=== PATIENT | male | born 1950 | race Caucasian/White ===

== ENCOUNTER 2023-09-11 02:22 | Inpatient (IN) | payer OTHER ==
[2023-09-11] VITALS (12 sets, daily range): BP systolic 134–196; BP diastolic 81–108; PULSE 89–112; RESP 16–20; TEMP 98–98.6
[~2023-09-11] VITALS: Ht 160 cm; Wt 73.9 kg
[2023-09-11 03:30] LABS: BASOPHILS % 1.1 % (0.0-2.0); EOSINOPHILS % 3.7 % (0.0-5.0); HEMATOCRIT. 34.8 % (42.0-52.0); HEMOGLOBIN. 11.1 g/dL (14.0-18.0); MEAN CORPUSCULAR HEMOGLOBIN 30.6 pg (28.0-32.0); MEAN CORPUSCULAR VOLUME 95.6 fL (80.0-94.0); MEAN PLATELET VOLUME 9.2 fl (7.4-10.4); MONOCYTES % 5.9 % (2.0-8.0); NEUTROPHILS % 76.3 % (40.0-76.0); PLATELET 242 x1000/uL (130-400); RED BLOOD CELL COUNT 3.64 mill/uL (4.7-6.1); RED CELL DISTRIBUTION WIDTH 15.5 % (11.6-14.6); WHITE BLOOD COUNT 8.2 x1000/uL (4.5-11.0)
[2023-09-11 03:31] LABS: CHLORIDE 110 mEq/L (98-107); SODIUM 139 mEq/L (136-145)
[2023-09-11 03:32] LABS: CARBON DIOXIDE 14 mEq/L (21-32)
[2023-09-11 03:33] LABS: CALCIUM 8.3 mg/dL (8.7-10.4)
[2023-09-11 03:37] LABS: GLUCOSE 117 mg/dL (70-105); PARTIAL THROMBOPLASTIN TIME 26.6 sec (23.4-31.0); PROTHROMBIN TIME 10.9 sec (9.6-11.0)
[2023-09-11 03:38] LABS: TROPONIN I HIGH SENSITIVITY 37 ng/L (3.0-53); UREA NITROGEN BLOOD 86 mg/dL (9-23)
[2023-09-11 03:39] LABS: ALANINE AMINOTRANSFERASE 8 IU/L (10-49); ALBUMIN 4.2 g/dL (3.2-4.8); ASPARTATE AMINOTRANSFERASE 12 IU/L (<34)
[2023-09-11 03:40] LABS: BILIRUBIN TOTAL 0.2 mg/dL (0.1-1.0); PROTEIN TOTAL 7.1 g/dL (6.0-8.3)
[2023-09-11 04:25] LABS: ETHANOL BLOOD < 10 mg/dL (<10)
[2023-09-11 04:27] LABS: CREATININE 12.6 mg/dL (0.6-1.3)
[2023-09-11 07:10] LABS: *AMPHETAMINES SCREEN URINE NEGATIVE (NEGATIVE); *BARBITURATES SCREEN URINE NEGATIVE (NEGATIVE); *BENZODIAZEPINES SCREEN URINE NEGATIVE (NEGATIVE); *COCAINE SCREEN URINE NEGATIVE (NEGATIVE); CANNABINOID URINE SCREEN NEGATIVE (NEGATIVE); ECSTASY MDMA SCREEN URINE NEGATIVE (NEGATIVE); METHADONE URINE SCREEN Neg (NEGATIVE); OPIATES URINE SCREEN NEGATIVE (NEGATIVE); PHENCYCLIDINE URINE SCREEN NEGATIVE (NEGATIVE)
[2023-09-11] MEDS: NITROGLYCERIN OINT 1GM/INCH UDPKT TD ONE (07:12)
[2023-09-11] MEDS: FUROSEMIDE 40MG/4ML VIAL IVP ONE (07:12)
[2023-09-11] MEDS ORDERED: DEXTROSE 50% WATER 50ML SYRINGE IV PRN (07:30)
[2023-09-11] MEDS ORDERED: DOCUSATE SODIUM 100MG CAPSULE PO PRN (07:30)
[2023-09-11] MEDS ORDERED: IPRATROPIUM/ALBUTEROL 0.5-3(2.5)MG/3ML NEB HHN PRN (07:30)
[2023-09-11] MEDS ORDERED: MAGNESIUM/ALUMINUM HYDROXIDE/SIMETHICONE 30ML UDC PO PRN (07:30)
[2023-09-11] MEDS ORDERED: ONDANSETRON HCL 4MG/2ML INJ IV PRN (07:30)
[2023-09-11 08:09] LABS: IRON 35 ug/dL (65-175)
[2023-09-11 08:10] LABS: T4 FREE 1.08 ng/dL (0.89-1.76); THYROID STIMULATING HORMONE 4.64 uIU/mL (0.55-4.78); TRIGLYCERIDE 109 mg/dL (0-150)
[2023-09-11 08:11] LABS: LDL CHOLESTEROL 75 mg/dL (5-100)
[2023-09-11 08:12] LABS: CHOLESTEROL 134 mg/dL (<200); HDL CHOLESTEROL 41 mg/dL (>55); PHOSPHORUS 7.1 mg/dL (2.5-4.9)
[2023-09-11 08:17] LABS: FERRITIN 56 ng/mL (22-322); VITAMIN B12 SERUM 289 pg/mL (211-911)
[2023-09-11] MEDS: INSULIN LISPRO 100 UNITS/ML SUBCUT SCH (08:20)
[2023-09-11] MEDS: HYDRALAZINE 20MG/ML VIAL IV PRN (08:53)
[2023-09-11] MEDS: FUROSEMIDE 40MG/4ML VIAL IV SCH ×2 (08:53→09:15)
[2023-09-11] MEDS: BLOOD SUGAR DIAGNOSTIC STRIP TEST SCH (08:59)
[2023-09-11] MEDS: FAMOTIDINE 20MG/2ML VIAL IV SCH (09:13)
[2023-09-11] MEDS: LOSARTAN 100 MG TABLET PO SCH (09:13)
[2023-09-11] MEDS: METOLAZONE 10MG TABLET PO NR (09:15)
[2023-09-11] MEDS: MANNITOL 12.5G (25%) VIAL 50ML IV NR (09:30)
[2023-09-11] MEDS ORDERED: LIDOCAINE HCL 1% 10 MG/ML 10ML VIAL ONE (09:33)
[2023-09-11] MEDS ORDERED: HEPARIN 1000 UNITS/ML 10ML ONE (09:33)
[2023-09-11 11:00] LABS: HEPATITIS B SURFACE AB < 3.1 mIU/mL (<10)
[2023-09-11 11:32] LABS: HEPATITIS A AB IGM NEGATIVE (Negative); HEPATITIS B CORE AB IGM NEGATIVE (Negative)
[2023-09-11 11:33] LABS: HEPATITIS C AB NON REACTIVE (Neg) (Negative)
[2023-09-11 11:38] LABS: HEPATITIS B SURFACE ANTIGEN NEGATIVE (Negative)
[2023-09-11] MEDS: CLONIDINE 0.1MG TABLET PO PRN (14:44)
[2023-09-11] MEDS ORDERED: TAMS-11 MT (14:55)
[2023-09-11] MEDS ORDERED: CHOL100046 (14:55)
[2023-09-11] MEDS ORDERED: CALC0.253 MT (14:55)
[2023-09-11] MEDS ORDERED: HYDR25TA78 PO (14:55)
[2023-09-11] MEDS ORDERED: ASPI-1160 MT (14:55)
[2023-09-11] MEDS ORDERED: LOSA100T33 MT (14:55)
[2023-09-11] MEDS: TAMSULOSIN HCL 0.4MG SR CAPSULE PO SCH (16:40)
[2023-09-11] MEDS ORDERED: FUROSEMIDE 40MG/4ML VIAL IV SCH (17:00)
[2023-09-11] MEDS: CALCIUM ACETATE 667MG CAPSULE PO SCH (17:47)
[2023-09-11] MEDS: ACETAMINOPHEN 325MG TABLET PO PRN (21:52)
[2023-09-11] MEDS: GUAIFENESIN 200MG/10ML SUGAR FREE UDC PO PRN (21:52)
[2023-09-11 22:26] LABS: CREATINE KINASE 138 IU/L (46-171)
[2023-09-11 22:45] LABS: TROPONIN I HIGH SENSITIVITY 67 ng/L (3.0-53)
[2023-09-12] VITALS (15 sets, daily range): BP systolic 123–148; BP diastolic 72–88; PULSE 78–90; RESP 16–22; TEMP 97.3–98.4
[2023-09-12 07:05] LABS: CHLORIDE 105 mEq/L (98-107); POTASSIUM 4.1 mEq/L (3.5-5.1); SODIUM 139 mEq/L (136-145)
[2023-09-12 07:07] LABS: CARBON DIOXIDE 23 mEq/L (21-32)
[2023-09-12 07:08] LABS: CALCIUM 8.2 mg/dL (8.7-10.4)
[2023-09-12 07:11] LABS: TROPONIN I HIGH SENSITIVITY 44 ng/L (3.0-53)
[2023-09-12 07:12] LABS: GLUCOSE 97 mg/dL (70-105)
[2023-09-12 07:13] LABS: UREA NITROGEN BLOOD 62 mg/dL (9-23)
[2023-09-12 07:14] LABS: ALANINE AMINOTRANSFERASE < 7 IU/L (10-49); ALBUMIN 3.3 g/dL (3.2-4.8); CREATINE KINASE 106 IU/L (46-171)
[2023-09-12 07:15] LABS: BILIRUBIN TOTAL 0.4 mg/dL (0.1-1.0); PHOSPHORUS 6.1 mg/dL (2.5-4.9); PROTEIN TOTAL 5.5 g/dL (6.0-8.3)
[2023-09-12 07:18] LABS: CREATININE 10.6 mg/dL (0.6-1.3)
[2023-09-12 07:19] LABS: ASPARTATE AMINOTRANSFERASE < 8 IU/L (<34)
[2023-09-12 07:37] LABS: BASOPHILS % 0.8 % (0.0-2.0); EOSINOPHILS % 5.5 % (0.0-5.0); LYMPHOCYTES % 20.4 % (20.0-50.0); MEAN CORPUSCULAR HEMOGLOBIN 30.1 pg (28.0-32.0); MEAN CORPUSCULAR HGB CONC 32.1 g/dL (31.0-37.0); MEAN CORPUSCULAR VOLUME 93.7 fL (80.0-94.0); MEAN PLATELET VOLUME 9.3 fl (7.4-10.4); NEUTROPHILS % 60.3 % (40.0-76.0); PLATELET 192 x1000/uL (130-400); RED CELL DISTRIBUTION WIDTH 14.8 % (11.6-14.6); WHITE BLOOD COUNT 4.8 x1000/uL (4.5-11.0)
[2023-09-12 07:49] LABS: HEMATOCRIT. 29.1 % (42.0-52.0); HEMOGLOBIN. 9.3 g/dL (14.0-18.0)
[2023-09-12] MEDS: ENOXAPARIN 30MG/0.3ML SYR SUBCUT SCH (08:57)
[2023-09-12] MEDS: FAMOTIDINE 20MG TABLET PO SCH (21:08)
[2023-09-13] VITALS (16 sets, daily range): BP systolic 132–175; BP diastolic 68–98; PULSE 81–105; RESP 15–20; TEMP 97.8–99.5
[2023-09-13 07:02] LABS: EOSINOPHILS % 7.1 % (0.0-5.0); HEMATOCRIT. 32.3 % (42.0-52.0); HEMOGLOBIN. 10.5 g/dL (14.0-18.0); LYMPHOCYTES % 17.4 % (20.0-50.0); MEAN CORPUSCULAR HEMOGLOBIN 30.4 pg (28.0-32.0); MEAN CORPUSCULAR HGB CONC 32.3 g/dL (31.0-37.0); MEAN CORPUSCULAR VOLUME 93.9 fL (80.0-94.0); MEAN PLATELET VOLUME 9.1 fl (7.4-10.4); MONOCYTES % 12.9 % (2.0-8.0); NEUTROPHILS % 61.6 % (40.0-76.0); PLATELET 193 x1000/uL (130-400); RED BLOOD CELL COUNT 3.44 mill/uL (4.7-6.1); RED CELL DISTRIBUTION WIDTH 14.6 % (11.6-14.6); WHITE BLOOD COUNT 6.5 x1000/uL (4.5-11.0)
[2023-09-13 07:37] LABS: CALCIUM 8.4 mg/dL (8.7-10.4)
[2023-09-13 07:42] LABS: CREATININE 9.5 mg/dL (0.6-1.3)
[2023-09-13] MEDS ORDERED: LIDOCAINE HCL 1% 10 MG/ML 10ML VIAL ONE (09:09)
[2023-09-13] MEDS: CEFAZOLIN 1000MG PREMIX 50 ML IV NR (09:10)
[2023-09-13] MEDS ORDERED: FENTANYL CITRATE/PF 50MCG/ML 2ML VIAL IV NR (09:10)
[2023-09-13] MEDS ORDERED: FENTANYL CITRATE/PF 50MCG/ML 2ML VIAL ONE (09:13)
[2023-09-13 18:03] LABS: POTASSIUM 3.9 mEq/L (3.5-5.1)
[2023-09-13 18:05] LABS: CALCIUM 8.3 mg/dL (8.7-10.4)
[2023-09-13 18:14] LABS: CREATININE 10.2 mg/dL (0.6-1.3)
[2023-09-14] VITALS (12 sets, daily range): BP systolic 121–155; BP diastolic 70–88; PULSE 79–87; RESP 17–20; TEMP 97.2–98.9
[2023-09-14] MEDS ORDERED: EPOETIN ALFA 4000UNITS/ML VIAL SUBCUT SCH (21:00)
[2023-09-15] VITALS: BP 119/76; PULSE 85; RESP 20; TEMP 98
[2023-09-15 04:00] VITALS: BP 123/76; PULSE 77; RESP 20; TEMP 97.5
[2023-09-15 08:00] VITALS: BP 126/77; PULSE 76; RESP 18; TEMP 98
[2023-09-15 12:00] VITALS: BP 120/74; PULSE 73; RESP 18; TEMP 98.2
[2023-09-15 16:00] VITALS: BP 118/72; PULSE 70; RESP 18; TEMP 97.4
[2023-09-15 20:00] VITALS: BP 134/77; PULSE 83; RESP 20; TEMP 98
[2023-09-16] VITALS (16 sets, daily range): BP systolic 100–145; BP diastolic 58–97; PULSE 76–99; RESP 16–20; TEMP 97.3–98.1
[2023-09-16 05:40] LABS: BASOPHILS % 0.7 % (0.0-2.0); EOSINOPHILS % 9.3 % (0.0-5.0); HEMOGLOBIN. 10.6 g/dL (14.0-18.0); LYMPHOCYTES % 25.7 % (20.0-50.0); MEAN CORPUSCULAR HEMOGLOBIN 29.4 pg (28.0-32.0); MEAN CORPUSCULAR HGB CONC 32.1 g/dL (31.0-37.0); MEAN CORPUSCULAR VOLUME 91.4 fL (80.0-94.0); MEAN PLATELET VOLUME 9.3 fl (7.4-10.4); MONOCYTES % 14.7 % (2.0-8.0); NEUTROPHILS % 49.6 % (40.0-76.0); PLATELET 177 x1000/uL (130-400); RED BLOOD CELL COUNT 3.61 mill/uL (4.7-6.1); RED CELL DISTRIBUTION WIDTH 14.1 % (11.6-14.6); WHITE BLOOD COUNT 6.5 x1000/uL (4.5-11.0)
[2023-09-16 06:01] LABS: CALCIUM 8.5 mg/dL (8.7-10.4)
[2023-09-16 06:09] LABS: CREATININE 11.8 mg/dL (0.6-1.3)
[2023-09-17 07:06] LABS: POTASSIUM 4.5 mEq/L (3.5-5.1)
[2023-09-17 07:08] LABS: CALCIUM 8.5 mg/dL (8.7-10.4)
[2023-09-17 07:31] LABS: BASOPHILS % 0.6 % (0.0-2.0); EOSINOPHILS % 7.9 % (0.0-5.0); HEMATOCRIT. 33.7 % (42.0-52.0); HEMOGLOBIN. 11.1 g/dL (14.0-18.0); LYMPHOCYTES % 24.4 % (20.0-50.0); MEAN CORPUSCULAR HEMOGLOBIN 30.4 pg (28.0-32.0); MEAN CORPUSCULAR VOLUME 92.1 fL (80.0-94.0); MEAN PLATELET VOLUME 9.4 fl (7.4-10.4); NEUTROPHILS % 53.1 % (40.0-76.0); PLATELET 180 x1000/uL (130-400); RED BLOOD CELL COUNT 3.66 mill/uL (4.7-6.1); WHITE BLOOD COUNT 6.7 x1000/uL (4.5-11.0)
[2023-09-17 08:00] VITALS: BP 125/71; PULSE 77; RESP 20; TEMP 98.8
[2023-09-17 12:00] VITALS: BP 113/70; PULSE 75; RESP 20; TEMP 98.7
[2023-09-17 13:00] VITALS: BP 167/75; PULSE 68
[2023-09-17 16:27] VITALS: BP 102/58; PULSE 65; RESP 18; TEMP 96.5
[2023-09-17] MEDS ORDERED: HYDRALAZINE 10 MG in SODIUM CHLORIDE 0.9% 49.5 ML IV PRN (18:45)
[2023-09-17 20:00] VITALS: BP 117/69; PULSE 74; RESP 18; TEMP 97.9
[2023-09-18] VITALS: BP 120/70; PULSE 77; RESP 14; TEMP 98.2
[2023-09-18 04:00] VITALS: BP 113/66; PULSE 75; RESP 16; TEMP 98
[2023-09-18 08:00] VITALS: BP 112/59; PULSE 74; RESP 20; TEMP 98
[2023-09-18 10:51] LABS: BASOPHILS % 0.5 % (0.0-2.0); EOSINOPHILS % 8.8 % (0.0-5.0); HEMATOCRIT. 34.2 % (42.0-52.0); LYMPHOCYTES % 20.7 % (20.0-50.0); MEAN CORPUSCULAR HEMOGLOBIN 29.4 pg (28.0-32.0); MEAN CORPUSCULAR HGB CONC 32.1 g/dL (31.0-37.0); MEAN CORPUSCULAR VOLUME 91.6 fL (80.0-94.0); MEAN PLATELET VOLUME 9.4 fl (7.4-10.4); MONOCYTES % 12.8 % (2.0-8.0); NEUTROPHILS % 57.2 % (40.0-76.0); PLATELET 194 x1000/uL (130-400); RED BLOOD CELL COUNT 3.73 mill/uL (4.7-6.1); RED CELL DISTRIBUTION WIDTH 13.6 % (11.6-14.6); WHITE BLOOD COUNT 5.5 x1000/uL (4.5-11.0)
[2023-09-18 10:57] LABS: POTASSIUM 4.8 mEq/L (3.5-5.1)
[2023-09-18 10:58] LABS: CALCIUM 8.4 mg/dL (8.7-10.4)
[2023-09-18 11:30] LABS: CREATININE 11.2 mg/dL (0.6-1.3)
[2023-09-18 12:00] VITALS: BP 116/62; PULSE 81; RESP 18; TEMP 98
[2023-09-18 16:00] VITALS: BP 118/64; PULSE 82; RESP 18; TEMP 98.1
[2023-09-18 20:00] VITALS: BP 119/57; PULSE 85; RESP 16; TEMP 98.7
[2023-09-19] VITALS (15 sets, daily range): BP systolic 116–141; BP diastolic 47–79; PULSE 68–91; RESP 16–19; TEMP 96.8–98.2
[2023-09-19 07:23] LABS: HEMOGLOBIN. 10.5 g/dL (14.0-18.0); MEAN CORPUSCULAR HEMOGLOBIN 29.5 pg (28.0-32.0); MEAN CORPUSCULAR HGB CONC 32.9 g/dL (31.0-37.0); MEAN CORPUSCULAR VOLUME 89.8 fL (80.0-94.0); MEAN PLATELET VOLUME 9.3 fl (7.4-10.4); PLATELET 172 x1000/uL (130-400); RED BLOOD CELL COUNT 3.57 mill/uL (4.7-6.1); RED CELL DISTRIBUTION WIDTH 13.8 % (11.6-14.6); WHITE BLOOD COUNT 5.9 x1000/uL (4.5-11.0)
[2023-09-19 07:29] LABS: CALCIUM 8.6 mg/dL (8.7-10.4)
[2023-09-19 07:33] LABS: DIFFERENTIAL COMMENT 1
[2023-09-19 08:47] LABS: CREATININE 12.1 mg/dL (0.6-1.3)
[2023-09-19 17:13] LABS: PLATELET ESTIMATE NORMAL
[2023-09-20] VITALS: BP 129/79; PULSE 79; RESP 19; TEMP 98.1
[2023-09-20 12:00] VITALS: BP 136/76; PULSE 86; RESP 19; TEMP 98
[2023-09-20 14:59] VITALS: BP 136/76; PULSE 86; TEMP 98.1; O2SAT 99
== END 2023-09-20 15:32 | disposition home or self-care (01) | DRG 194 ==
LOC: ER 02:22 → 7WST 07:00 → 6WST 09-17 18:15
PROVIDERS: ADMIT Internal Medicine; ATTEND Internal Medicine
PROC: 02H633Z Insertion of Infusion Device into Right Atrium, Percutaneous Approach (ICD-10-PCS; 2023-09-11)
PROC: 5A1D70Z Performance of Urinary Filtration, Intermittent, Less than 6 Hours Per Day (ICD-10-PCS; 2023-09-11)
PROC: 5A1D70Z Performance of Urinary Filtration, Intermittent, Less than 6 Hours Per Day (ICD-10-PCS; 2023-09-12)
PROC: 0JH63XZ Insertion of Tunneled Vascular Access Device into Chest Subcutaneous Tissue and Fascia, Percutaneous Approach (ICD-10-PCS; principal; 2023-09-13)
PROC: 05HM33Z Insertion of Infusion Device into Right Internal Jugular Vein, Percutaneous Approach (ICD-10-PCS; 2023-09-13)
PROC: B5131ZA Fluoroscopy of Right Jugular Veins using Low Osmolar Contrast, Guidance (ICD-10-PCS; 2023-09-13)
PROC: 5A1D70Z Performance of Urinary Filtration, Intermittent, Less than 6 Hours Per Day (ICD-10-PCS; 2023-09-14)
PROC: 5A1D70Z Performance of Urinary Filtration, Intermittent, Less than 6 Hours Per Day (ICD-10-PCS; 2023-09-16)
PROC: 5A1D70Z Performance of Urinary Filtration, Intermittent, Less than 6 Hours Per Day (ICD-10-PCS; 2023-09-19)
DX: I13.2 Hypertensive heart and chronic kidney disease with heart failure and with stage 5 chronic kidney disease, or end stage renal disease (principal); N17.9 Acute kidney failure, unspecified; I50.9 Heart failure, unspecified; E83.39 Other disorders of phosphorus metabolism; E87.70 Fluid overload, unspecified; N18.6 End stage renal disease; E87.20 Acidosis, unspecified; E83.51 Hypocalcemia; D53.9 Nutritional anemia, unspecified; I16.1 Hypertensive emergency; E83.42 Hypomagnesemia; E87.5 Hyperkalemia; G47.00 Insomnia, unspecified; N40.0 Benign prostatic hyperplasia without lower urinary tract symptoms; R73.9 Hyperglycemia, unspecified; Z88.5 Allergy status to narcotic agent; Z99.2 Dependence on renal dialysis
CPT/HCPCS: 36415; 36556; 36558; 36589; 71045; 74176; 76770; 76937; 77001; 80048; 80053; 80061; 80305; 80320; 82550; 82607; 82728; 82746; 82962; 83036; 83540; 83605; 83735; 83880; 84100; 84145; 84439; 84443; 84484; 85018; 85025; 86705; 86706; 86709; 87340; 90935; 93005; 93306; 97166; 99152; 99153; 99285; C1750; C1752; C1769; J0360; J0690; J1642; J1644; J1650; J1815; J1940; J2150; J3010; J3490; G0480; G0500